=== PATIENT | female | born 1990 | race Caucasian/White ===

== ENCOUNTER 2018-08-29 08:23 | Emergency (ER) | payer OTHER ==
[~2018-08-29] VITALS: Ht 170.2 cm; Wt 88.0 kg
[2018-08-29 08:28] VITALS: BP 90/51; Ht 170.2 cm; Wt 88.0 kg
[2018-08-29 09:53] LABS: microscopic required? YES; urine erythrocyte 3+ (NEGATIVE)
[2018-08-29 09:57] LABS: BASOPHIL % 0.7 % (0-2); PLATELET COUNT 232 x10^3mcL (130-400); RED CELL DISTRIBUTION WIDTH 12.6 % (11.5-14.5)
== END 2018-08-29 12:21 | disposition home or self-care (01) ==
LOC: ED 08:23
PROVIDERS: Specialist
DX: O36.4XX0 Maternal care for intrauterine death, not applicable or unspecified (principal); Z3A.08 8 weeks gestation of pregnancy
CPT/HCPCS: 36415